=== PATIENT | female | born 1950 | race Caucasian/White ===

== ENCOUNTER 2017-04-13 05:31 | Inpatient (IN) | payer OTHER ==
--- NOTE | 2017-01-29 12:08 | PAT Medication Instructions ---
Service Date January 29, 2017. Current Home Medication List Aspirin (Aspirin Ec), 81 MG PO QAM Calcium/Vitamin D (Os-Denzel 500 Plus D), 1 TAB PO BID Cyanocobalamin (Vitamin B12), 1 TAB PO NOON Ibuprofen (Advil), 400 MG PO Q6 PRN for Pain Multivitamin (Multivitamin), 1 TAB PO QPM Medication Instructions For Your Scheduled Surgery Ibuprofen (Advil), 400 MG PO Q6 PRN for Pain (check surgeon instructions) - Hold the following medications the morning of surgery: Calcium/Vitamin D (Os-Denzel 500 Plus D), 1 TAB PO BID Cyanocobalamin (Vitamin B12), 1 TAB PO NOON - Take the following medications the morning of surgery with a sip of water: Aspirin (Aspirin Ec), 81 MG PO QAM - Take the following medications as scheduled the night before surgery: Multivitamin (Multivitamin), 1 TAB PO QPM Calcium/Vitamin D (Os-Denzel 500 Plus D), 1 TAB PO BID If you have any questions please call us at [phone] or [phone] ( [place]) or [phone]
[2017-01-29 12:51] LABS: INR 0.9 (0.9-1.1); PARTIAL THROMBOPLASTIN RATIO 1.1; PROTHROMBIN TIME (PATIENT) 10.1 SECONDS (9.0-12.0)
[2017-01-29 13:02] LABS: URINE APPEARANCE CLEAR (CLEAR); URINE BILIRUBIN NEG (NEG); URINE COLOR YELLOW; URINE NITRITE NEG (NEG); URINE PH 5.5 (4.5-7.5); UROBILINOGEN NEG (NEG); ZZUR CULT IF INDIC CLEAN CATCH NO
--- NOTE | 2017-01-29 13:02 | DIAGNOSTIC IMAGING REPORT ---
CHEST 2 VIEWS ROUTINE HISTORY: Preop. COMPARISON: None. FINDINGS: The lungs are clear. Cardiac silhouette is normal in size. No pleural effusions. No pneumothorax. IMPRESSION: No acute process. Electronically signed by: Nelson Briggs M.D. 01/29/2017 1:01 PM Dictated Date/Time: 01/29/2017 1:00 PM
[2017-01-29 13:12] LABS: MANUAL MICROSCOPIC REQUIRED? NO; REVIEW REQ? NO
--- NOTE | 2017-03-03 14:06 | HISTORY & PHYSICAL EXAMINATION ---
DATE OF ADMISSION: 03/16/2017 CHIEF COMPLAINT: Right knee pain. HISTORY OF PRESENT ILLNESS: Trini is a 66-year-old female with a multiple year history of right knee pain. She rates her pain a 9/10. She has pain with her daily activities. She has limited standing and walking tolerance. Pain is worse with weightbearing. The patient has had injections, NSAID and she ambulates with a cane without relief. She is now scheduled for right knee replacement. PAST MEDICAL HISTORY: ITP. She denies heart disease, diabetes or DVT. PAST SURGICAL HISTORY: Tonsillectomy, splenectomy and hernia repair. SOCIAL HISTORY: The patient drinks one drink per week. She denies tobacco use. She lives in a 2-story home. She lives alone but is planning to stay with her sister on the first floor postoperatively. She is retired. FAMILY HISTORY: Negative for DVT. MEDICATIONS: Calcium 600 mg b.i.d., vitamin B12 500 mg daily, aspirin 81 mg daily, Advil p.r.n., Centrum Silver 1 daily. ALLERGIES: PENICILLIN AND LATEX. REVIEW OF SYSTEMS: See HPI. Ten other systems reviewed, all negative. PHYSICAL EXAMINATION: VITAL SIGNS: Height 5 feet 1 inch, weight 160 pounds. BMI is 30. GENERAL: This is a well-developed, well-nourished female who is alert and oriented x3. Mood and affect are appropriate. HEAD, EYES, EARS, NOSE, AND THROAT: Normocephalic, atraumatic. Mucous membranes are moist and intact. NECK: Supple without lymphadenopathy. HEART: Regular rate and rhythm without murmurs, rubs or gallops. LUNGS: Clear to auscultation without wheezes or rhonchi. ABDOMEN: Soft and nontender. Bowel sounds are equal and active. EXTREMITIES: No ecchymosis, redness or warmth. She has varus deformity. Range of motion is from 0-115 degrees with +1 laxity. She is neurovascularly intact with +5/5 strength. X-RAY EXAMINATION: AP and lateral views show joint space narrowing and osteophyte formation. IMPRESSION: Degenerative joint disease, right knee. PLAN: The patient will be admitted for a right total knee arthroplasty. We will plan on aspirin for DVT prophylaxis. PCP is YOLA Coelho. She will have [facility] for home physical therapy.
--- NOTE | 2017-04-10 18:14 | History and Physical ---
History & Physical Date Apr 10, 2017. Chief Complaint RIGHT KNEE PAIN History of Present Illness The patient is a 66 year old female with complaints of right knee pain for several years now. She has tried nsaids, PT, and injections with no relief. Pt is ready for right knee replacement. Past Medical/Surgical History ITP, MANAGED BY SPLENECTOMY SPLENECTOMY Additional History Hepatic Disease: No Endocrine Disorder: No Kidney Disease: No Hypertension: No Heart Disease: No Bleeding Tendencies: Yes (HX OF ITP) Infectious Diseases: No Allergies Coded Allergies: Latex1 -Allergic Contact Dermititis (Verified Allergy, Unknown, PER ALLERGY TEST, 01/29/17) Oxycodone (Verified Allergy, Unknown, RASH, 01/29/17) PATIENT HAD A HERNIA SURGERY AND ONCE HOME DEVELOPED A SEVERE ITCHING RASH, SURGEON BELIEVES IT WAS FROM OXYCODONE POLLEN (Verified Allergy, Unknown, HAYFEVER, 01/29/17) Penicillins (Verified Allergy, Unknown, RASH, 01/29/17) Home Medications Scheduled Aspirin (Aspirin Ec), 81 MG PO QAM Calcium/Vitamin D (Os-Denzel 500 Plus D), 1 TAB PO BID Cyanocobalamin (Vitamin B12), 1 TAB PO NOON Multivitamin (Multivitamin), 1 TAB PO QPM Scheduled PRN Ibuprofen (Advil), 400 MG PO Q6 PRN for Pain Physical Examination Skin: warm/dry, no rash Eyes: normal inspection, EOMI, sclerae normal ENT: normal ENT inspection, pharynx normal Head: normocephalic, atraumatic Neck: supple, no adenopathy, trachea midline Respiratory/Chest: lungs clear, normal breath sounds, no respiratory distress Cardiovascular: regular rate, rhythm, no edema, no murmur Abdomen / GI: normal bowel sounds, non tender Back: normal inspection Extremities: + pertinent finding (PAIN WITH ROM WITH RIGHT KNEE. CREPITATION WITH MOTION WELL. ) Neurologic/Psych: no motor/sensory deficits, alert, normal reflexes, oriented x 3 Diagnosis DJD RIGHT KNEE Plan of Treatment ADMIT TO [facility]. PLAN IS FOR RIGHT TOTAL KNEE REPLACEMENT.
[~2017-04-13] VITALS: Ht 154.9 cm; Wt 72.8 kg
[2017-04-13] VITALS (9 sets, daily range): BP systolic 106–157; BP diastolic 68–89; PULSE 67–91; TEMP 36.2–36.7; O2SAT 95–99; Ht 154.9 cm; Wt 72.8 kg
[~2017-04-13 05:31] MED LIST: ASPI81TA28 PO; CALC500C70 PO; CYAN100020 PO; IBUP-1050 PO; LACTATED RINGER'S 1000ML 1,000 ML IV SCH; LACTATED RINGER'S 1000ML 500 ML IV ONE; MULT-506 PO
[2017-04-13] MEDS ORDERED: ROPIVACAINE 5MG/ML 30 ML 150 MG, BUPIVACAINE/EPINEPHR 0.5% MPF 30 ML, KETOROLAC TROMETH... INFIL SCH ×7 (06:00)
[2017-04-13] MEDS ORDERED: FAMOTIDINE 20 MG TAB PO SCH (06:00)
[2017-04-13] MEDS ORDERED: LACTATED RINGER'S 1000ML 1,000 ML IV SCH ×2 (06:00)
[2017-04-13] MEDS ORDERED: CEFAZOLIN 1000MG/55 ML D5W 55 ML IV SCH (06:00)
[2017-04-13] MEDS ORDERED: ACETAMINOPHEN 500 MG TAB PO SCH (06:00)
[2017-04-13] MEDS ORDERED: LACTATED RINGER'S 1000ML 500 ML IV ONE (06:00)
[2017-04-13] MEDS ORDERED: METOCLOPRAMIDE HCL 10 MG TAB PO SCH (06:00)
[2017-04-13] MEDS ORDERED: CeleBREX 200 MG CAP PO SCH (06:00)
[2017-04-13] MEDS ORDERED: DEXAMETHASONE 4 MG TAB PO SCH (06:00)
[2017-04-13] MEDS ORDERED: BUPIVACAINE 0.25% 30 ML VIAL ONE (07:40)
[2017-04-13] MEDS ORDERED: BUPIVACAINE 0.5 % 5 MG/1 ML PF 10ML VIAL ONE (07:40)
[2017-04-13] MEDS ORDERED: FENTANYL CITRATE INJ 50 MCG/1 ML 2 ML VIAL ONE (10:08)
[2017-04-13] MEDS ORDERED: MIDAZOLAM HCL 1 MG/ML 2ML VIAL ONE (10:08)
[2017-04-13] MEDS ORDERED: CHERRY PACK PO (10:33)
--- NOTE | 2017-04-13 10:43 | History & Physical Bridge Note ---
H&P Re-Evaluation Bridge Note: I have examined the patient, reviewed the History & Physical and in the interval since the performance of the History & Physical I have noted the following changes of clinical significance: No changes noted
[2017-04-13] MEDS ORDERED: ORTHO JOINT ANESTHETIC ONE (11:14)
[2017-04-13] MEDS ORDERED: BACITRACIN 50000 UNIT VIAL ONE (11:14)
[2017-04-13] MEDS ORDERED: POVIDONE-IODINE OP SOLN 30 ML BTL ONE (11:14)
[2017-04-13] MEDS ORDERED: PHENYLEPHRINE 100MCG/ML 5ML SYR IV PRN (11:45)
[2017-04-13] MEDS ORDERED: ATROPINE SULFATE 0.1 MG/ML 5ML SYR IV PRN (11:45)
[2017-04-13] MEDS ORDERED: ONDANSETRON INJ 2 MG/ML 2 ML VIAL IV PRN ×2 (11:45→13:00)
[2017-04-13] MEDS ORDERED: KETOROLAC TROMETHAMINE 15 MG/ML VIAL IV. PRN (11:45)
[2017-04-13] MEDS ORDERED: HYDROmorphone INJ 2 MG/ML SYR/VIAL IV PRN (11:45)
[2017-04-13] MEDS ORDERED: EpHEDrine SULFATE INJ 50 MG/ML AMP IV PRN (11:45)
[2017-04-13] MEDS ORDERED: PROPOFOL IV EMULSION 10 MG/ML 20 ML VIAL IV ONE ×2 (11:50→12:58)
[2017-04-13] MEDS ORDERED: CEFAZOLIN SOD 1 GM VIAL ONE (12:05)
[2017-04-13] MEDS ORDERED: LIDOCAINE HCL 2% 2 ML VIAL (20MG/ML) ONE ×2 (12:05→12:58)
--- NOTE | 2017-04-13 12:57 | [facility] Post Operative Brief Note ---
Immediate Operative Summary Operative Date Apr 13, 2017. Pre-Operative Diagnosis Right Knee Degenerative Joint Disease Post-Operative Diagnosis Right Knee Degenerative Joint Disease Procedure(s) Performed Right Total Knee Arthroplasty, Cemented Surgeon Dr. Sierra Medical Records Manager Surgeon(s) Karen Reyna PA-C Estimated Blood Loss 20 mL Findings as above Specimens A: Right Knee Bone and Tissue Complication(s) None Disposition Recovery Room / PACU
[2017-04-13] MEDS ORDERED: ALUMINUM/MAGNESIUM/SIMETH (MAALOX MAX) 30 ML UDC PO PRN (13:00)
[2017-04-13] MEDS ORDERED: NO NSAIDS SCH (13:00)
[2017-04-13] MEDS ORDERED: BISACODYL 10 MG SUPP PR PRN (13:00)
[2017-04-13] MEDS ORDERED: ZOLPIDEM TARTRATE 5 MG TAB PO PRN (13:00)
[2017-04-13] MEDS ORDERED: OXYCODONE HCL IR 5 MG TAB (IMMEDIATE RELEASE) PO PRN (13:00)
[2017-04-13] MEDS ORDERED: MAGNESIUM HYDROXIDE SUSP 30 ML UDC PO PRN (13:00)
--- NOTE | 2017-04-13 14:19 | OPERATIVE REPORT ---
DATE OF OPERATION: 04/13/2017 PREOPERATIVE DIAGNOSIS: Degenerative joint disease of the right knee. POSTOPERATIVE DIAGNOSIS: Same. PROCEDURE: Right total knee arthroplasty with use of the patient matched implant. SURGEON: Eugenio Yang DO PHARMACOLOGY TEACHER: MARLO Smith certified. ANESTHESIA: Spinal. COMPLICATIONS: Zero. DISPOSITION: The patient tolerated the procedure well and transferred to the recovery room. IMPLANTS USED: A [employer] II knee size 4 cemented femoral component, a size 3 tibial component, size 13 PS insert and size 32 all polyethylene patella. INDICATIONS: Ms. Wilder is a pleasant female who has unfortunately failed all forms of conservative measures. Therefore, she has decided to undergo elective surgical intervention. All risks and benefits of the surgery were discussed with the patient and the family in entirety. PROCEDURE: The patient was brought to the operating room and properly identified by myself, anesthesia, and staff. She was given a spinal anesthetic and placed on the operating table in the supine position. Tourniquets were applied to the right upper thigh. The leg was then prepped and draped in usual sterile fashion. We made a standard midline approach over the patella and dissected down through the subcutaneous tissue to identify the capsule and performed a medial capsulotomy with the patella everted and the knee flexed. The patient-matched implant was then put onto the femur. The femur measured to be a size 4. This was then put into place. We made the appropriate cuts and then placed a retractor behind the proximal tibia to retract anteriorly. We then placed the patient-matched knee implant on the tibia. It measured to be a size 3. A size 13 guide was then put in place. We used the tibial punch then put the trial components into place. We had very good range of motion, excellent stability, and excellent patella tracking. We removed the trial components and irrigated the wound. We impacted the components in place using antibiotic cement. All excess cement was removed. We then irrigated the wound once more. We closed the capsule with 0 PDS suture, deep dermis with 2-0 Vicryl, and finally the skin with angela. A sterile dressing was applied. The patient was taken to the recovery room in stable condition. Due to the complex nature of the procedure, the entire surgery was performed with the operational assistance of the (TIGIST). The electrical assistant was under direct supervision, was involved in the actual performance of all aspects of the surgical procedure including hemostasis, tissue retraction and incision, instrument management, patient positioning, and wound closure. I attest to the content of the Intraoperative Record and any orders documented therein. Any exceptions are noted below. RODOLFO
[2017-04-13] MEDS: TRANEXAMIC ACID INJ 1,000 MG in SODIUM CHLORIDE 0.9% 100ML 100 ML IV SCH ×2 (15:11→15:12)
[2017-04-13] MEDS: SODIUM CHLORIDE 0.9% 1000ML 1,000 ML IV SCH ×2 (15:14→22:14)
--- NOTE | 2017-04-13 15:39 | Anesthesiology Progress Note ---
Anesthesia Post Op Note Date & Time Apr 13, 2017 at 15:39 Vital Signs Pain Intensity: 0.0 Vital Signs Past 12 Hours Date Time Temp Pulse Resp B/P (MAP) Pulse Ox O2 Delivery O2 Flow Rate FiO2 04/13/17 15:24 36.5 75 16 106/68 (81) 99 Nasal Cannula 2.0 04/13/17 14:40 36.7 71 19 126/81 (96) 98 Nasal Cannula 2.0 04/13/17 14:15 36.2 78 16 123/75 (91) 98 Nasal Cannula 2.0 04/13/17 14:15 Nasal Cannula 2.0 04/13/17 14:15 Nasal Cannula 2.0 04/13/17 14:05 75 16 113/61 99 Nasal Cannula 2 04/13/17 13:55 36.4 74 16 112/63 99 Nasal Cannula 2 04/13/17 13:45 72 16 104/57 99 Oxymask 3 04/13/17 13:35 73 16 97/57 98 Oxymask 5 04/13/17 13:25 76 16 88/50 95 Oxymask 10 04/13/17 13:19 36.3 75 16 90/44 95 Oxymask 10 04/13/17 09:50 36.6 88 16 144/89 04/13/17 09:50 97 Room Air Notes Mental Status: alert / awake / arousable, participated in evaluation Pt Amnestic to Procedure: Yes Nausea / Vomiting: adequately controlled Pain: adequately controlled Airway Patency, RR, SpO2: stable & adequate BP & HR: stable & adequate Hydration State: stable & adequate Anesthetic Complications: no major complications apparent
[2017-04-13] MEDS ORDERED: NURSING VERBAL MED ORDER ONE ×2 (19:30)
[2017-04-13] MEDS ORDERED: KETOROLAC TROMETHAMINE 15 MG/ML VIAL IV. ONE (19:45)
[2017-04-13] MEDS: HYDROCODONE/ACETAMOPHEN 5/325MG TAB PO PRN ×2 (19:45→20:51)
[2017-04-13] MEDS: ASPIRIN 81 MG ECTAB PO SCH (20:52)
[2017-04-13] MEDS: CEFAZOLIN IV 1,000 MG in DEXTROSE 5% 50ML 50 ML IV SCH (20:52)
[2017-04-13] MEDS: DOCUSATE SODIUM 100 MG CAP PO SCH (20:52)
[2017-04-13] MEDS: ACETAMINOPHEN 500 MG TAB PO SCH (22:00)
[2017-04-14] VITALS (7 sets, daily range): BP systolic 117–143; BP diastolic 71–85; PULSE 63–85; TEMP 36.4–36.7; O2SAT 96–99
[2017-04-14] MEDS: CEFAZOLIN IV 1,000 MG in DEXTROSE 5% 50ML 50 ML IV SCH (03:25)
[2017-04-14] MEDS: HYDROCODONE/ACETAMOPHEN 5/325MG TAB PO PRN (03:29)
[2017-04-14] MEDS: ACETAMINOPHEN 500 MG TAB PO SCH ×3 (03:30→21:50)
[2017-04-14 06:01] LABS: HEMATOCRIT 33.5 % (37-47); MEAN CELL VOLUME 89.1 fL (80-100); MEAN CORPUSCULAR HEMOGLOBIN 30.1 pg (25-34); MEAN CORPUSCULAR HGB CONC 33.7 g/dl (32-36); MEAN PLATELET VOLUME 10.6 fL (7.4-10.4); PLATELET COUNT 282 K/uL (130-400); RED BLOOD COUNT 3.76 M/uL (4.2-5.4); WHITE BLOOD COUNT 19.24 K/uL (4.8-10.8)
[2017-04-14] MEDS ORDERED: DEXAMETHASONE INJ 10 MG in SYRINGE 0 ML IV SCH (07:30)
[2017-04-14] MEDS: PANTOprazole SOD 40 MG TAB PO SCH (08:40)
[2017-04-14] MEDS: ASPIRIN 81 MG ECTAB PO SCH ×2 (08:40→21:00)
[2017-04-14] MEDS: SODIUM CHLORIDE 0.9% 1000ML 1,000 ML IV SCH (08:41)
[2017-04-14] MEDS: DOCUSATE SODIUM 100 MG CAP PO SCH ×2 (08:41→21:00)
--- NOTE | 2017-04-14 11:02 | Orthopedic Progress Note ---
Orthopedic Progress Note Date of Service Apr 14, 2017. Subjective Post OP Day: 1 Reports: feeling well, complaints (RASH NOTED IN FLEXOR SURFACES (ARMS, GROIN, BREASTS)), Denies: chest pain, SOB, nausea / vomiting, light headedness, calf pain Objective calves soft nontender, N/V intact, dressing C/D/I, A&O x3, toes mobile Date Time Temp Pulse Resp B/P (MAP) Pulse Ox O2 Delivery O2 Flow Rate FiO2 04/14/17 10:11 96 Room Air 04/14/17 08:19 Room Air 04/14/17 07:51 36.4 72 10 122/74 (90) 96 Room Air 04/14/17 03:24 36.4 64 16 117/71 (86) 97 Room Air 04/13/17 23:46 36.6 67 16 113/69 (84) 97 Room Air 04/13/17 23:05 Room Air 04/13/17 18:50 36.6 82 16 112/73 (86) 95 Room Air 04/13/17 17:19 36.6 73 16 117/71 (86) 97 Nasal Cannula 2.0 04/13/17 16:15 36.6 77 16 111/68 (82) 98 Nasal Cannula 2.0 04/13/17 15:24 36.5 75 16 106/68 (81) 99 Nasal Cannula 2.0 04/13/17 15:20 Nasal Cannula 2.0 04/13/17 14:40 36.7 71 19 126/81 (96) 98 Nasal Cannula 2.0 04/13/17 14:15 36.2 78 16 123/75 (91) 98 Nasal Cannula 2.0 04/13/17 14:15 Nasal Cannula 2.0 04/13/17 14:15 Nasal Cannula 2.0 04/13/17 14:05 75 16 113/61 99 Nasal Cannula 2 04/13/17 13:55 36.4 74 16 112/63 99 Nasal Cannula 2 04/13/17 13:45 72 16 104/57 99 Oxymask 3 04/13/17 13:35 73 16 97/57 98 Oxymask 5 04/13/17 13:25 76 16 88/50 95 Oxymask 10 04/13/17 13:19 36.3 75 16 90/44 95 Oxymask 10 Laboratory Results 24 Hours: Test 04/14/17 05:25 Hematocrit 33.5 % Hemoglobin 11.3 g/dL Assessment & Plan Assessment: POD#1 SP RIGHT TKA Inhouse Planning Pain Management: Celebrex, [place] DVT Prophylaxis: ASA Discharge Planning Discharge Planning: home with oppt (POSSIBLE DC TODAY. RECHECK RASH LATER TODAY )
[2017-04-14] MEDS: BETAMETHASONE VAL 0.1% CR 15 GM EXT PRN (23:04)
--- NOTE | 2017-04-14 23:53 | Medical Consult ---
Consultation Date of Consultation: Apr 14, 2017. Attending Physician: Eugenio Sierra DO Reason for Consultation: Rash History of Present Illness 66 year old with diffuse blanching erythematous raised confluent rash mostly in sweat prone areas. She is unsure whether it started after having opiates or antibiotics. No resolution of symptoms despite antihistamines given as inpatient. Very itchy. No bruising or spontaneous bleeding Previous had similar rash after oxycodone use. Hx of chronic ITP but platelets currently normal. Past Medical/Surgical History Chronic ITP Hx opiate (oxycodone) induced rash Splenectomy Social History Smoking Status: Never Smoker Allergies Coded Allergies: Latex1 -Allergic Contact Dermititis (Verified Allergy, Unknown, PER ALLERGY TEST, 01/29/17) Oxycodone (Verified Allergy, Unknown, RASH, 01/29/17) PATIENT HAD A HERNIA SURGERY AND ONCE HOME DEVELOPED A SEVERE ITCHING RASH, SURGEON BELIEVES IT WAS FROM OXYCODONE POLLEN (Verified Allergy, Unknown, HAYFEVER, 01/29/17) Penicillins (Verified Allergy, Unknown, RASH, 01/29/17) Current Inpatient Medications Current Inpatient Medications Medications (Trade) Dose Ordered Sig/Stephanie Route Start Time Stop Time Status Last Admin Dose Admin Miscellaneous Medication (No Nsaids) 1 ea UD N/A 04/13/17 13:00 05/13/17 12:59 Oxycodone HCl (Roxicodone Immediate Rel Tab) 1 TABLET FOR PAIN RATING... Q4H PRN PO 04/13/17 13:00 04/27/17 12:59 Acetaminophen (Tylenol Tab) 1,000 mg Q8 PO 04/13/17 22:00 05/13/17 21:59 04/14/17 21:50 1,000 MG Magnesium Hydroxide (Milk Of Magnesia Susp) 30 ml Q6H PRN PO 04/13/17 13:00 05/13/17 12:59 Bisacodyl (Dulcolax Supp) 10 mg DAILY PRN IA 04/13/17 13:00 05/13/17 12:59 Docusate Sodium (coLACE CAP) 100 mg BID PO 04/13/17 21:00 05/13/17 20:59 04/14/17 21:00 100 MG Al Hydrox/Mg Hydrox/Simethicone (Maalox Max Susp) 15 ml Q4H PRN PO 04/13/17 13:00 05/13/17 12:59 Zolpidem Tartrate (Ambien Tab) 5 mg HSZ PRN PO 04/13/17 13:00 05/13/17 12:59 Ondansetron HCl (Zofran Inj) 4 mg Q6H PRN IV 04/13/17 13:00 05/13/17 12:59 Pantoprazole Sodium (Protonix Tab) 40 mg QAM PO 04/14/17 09:00 05/14/17 08:59 04/14/17 08:40 40 MG Aspirin (Ecotrin Tab) 81 mg BID PO 04/13/17 21:00 05/13/17 20:59 04/14/17 21:00 81 MG Betamethasone Valerate (Valisone 0.1% Crm) 1 appln QID PRN EXT 04/14/17 22:45 05/14/17 22:44 04/14/17 23:04 1 APPLN Review of Systems Constitutional: No fever, No chills Abdomen: No pain, No nausea, No vomiting, No diarrhea, No constipation Genitourinary - Female: No dysuria, No urinary frequency, No urinary urgency Integumentary: + problem reported (see HPI) Physical Exam Date Time Temp Pulse Resp B/P (MAP) Pulse Ox O2 Delivery O2 Flow Rate FiO2 04/14/17 23:17 36.7 63 18 117/71 (86) 97 Room Air 04/14/17 16:35 Room Air 04/14/17 16:01 36.7 82 19 125/72 (89) 96 Room Air 04/14/17 11:35 36.6 72 20 118/72 (87) 96 Room Air 04/14/17 10:11 96 Room Air 04/14/17 10:06 85 99 04/14/17 08:19 Room Air 04/14/17 07:51 36.4 72 10 122/74 (90) 96 Room Air 04/14/17 03:24 36.4 64 16 117/71 (86) 97 Room Air General Appearance: WD/WN, no apparent distress Respiratory/Chest: chest non-tender, lungs clear, normal breath sounds, no respiratory distress, no accessory muscle use Cardiovascular: regular rate, rhythm, normal peripheral pulses Abdomen/GI: normal bowel sounds, non tender, soft Extremities/Musculoskelatal: no calf tenderness, normal capillary refill Skin: + rash (diffuse blanching erythematous raised confluent rash mostly in sweat prone areas) Laboratory Results Last 24 Hours Test 04/14/17 05:25 White Blood Count 19.24 K/uL Red Blood Count 3.76 M/uL Hemoglobin 11.3 g/dL Hematocrit 33.5 % Mean Corpuscular Volume 89.1 fL Mean Corpuscular Hemoglobin 30.1 pg Mean Corpuscular Hemoglobin Concent 33.7 g/dl RDW Standard Deviation 47.0 fL RDW Coefficient of Variation 14.4 % Platelet Count 282 K/uL Mean Platelet Volume 10.6 fL Hepatitis C Antibody Screen NEG Assessment & Plan 66 year old with diffuse blanching erythematous raised confluent rash mostly in sweat prone areas. Given Hx of acute sudden eruption and patient reports similar in appearance to previous rash after oxycodone use it is most likely a non IgE mediated opiate reaction. Other potential differentials include Tinea ( not classic appearance or rapid onset Hx), cefazolin induced allergy (does not appear as hives). No petechia or purpura to be concerned about ITP. Asplenic therefore have to be vigilant for cellulitis given she is less protected against encapsulated organisms. Plan Stop Benadryl - this has not helped which supports the diagnosis of non IgE mediated Stop hydrocodone. If she needs something more than tylenol for pain could try a different class of opiates ie. synthetic phenylpiperidine eg. fentanyl Initially we will try to avoid systemic steroids if possible and start beclomethasone 0.1% cream to help with itching. If rash does not improve with steroid cream can always increase potency or will discuss with patient option for systemic steroids. We will continue to see to assess for worsening/improving symptoms. 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 Plt currently 272 Attending Addendum: I have physically seen and examined this patient, have supervised the medical residents activities, and agree with the H&P as noted above with the following exceptions as noted. The patient denies chest pain, palpitations, shortness of breath, cough, lower extremity swelling, sore throat, fevers, chills, sweats, fatigue, nausea, vomiting, diarrhea or constipation, blood in urine or stool, dysuria, urinary frequency or urgency, lightheadedness, dizziness, headache, memory loss, imbalance, focal or generalized weakness, numbness or tingling in arms or legs, generalized arthralgias or myalgias, back or neck pain, night sweats. The review of systems is otherwise negative other than for that already noted above, and at least 10 systems have been reviewed. The patient is awake, well-developed and adequately nourished, alert and oriented 3, normocephalic and atraumatic, lying in bed and in no acute distress. HEENT--PERRL, EOMI, mucous membranes and oropharynx dry. Neck--supple, no JVD or bruits, thyroid normal, trachea midline, no adenopathy. Heart--normal S1 and S2, no extra beats, no murmurs, rubs or gallops. Lungs--clear bilaterally with good air movement, no respiratory distress, no accessory muscle use. Abdomen--normal bowel sounds and soft, nontender and nondistended, no hernias or masses, no organomegaly. Extremities--no cyanosis, clubbing or edema. There are good distal pulses b/l. Dermatologic--generalized, confluent, nontender rash most prominent on the breast tissue and skin folds. Neurologic--cranial nerves II through XII grossly intact, motor and sensory examination normal. Rheumatologic--normal range of motion, nontender, muscles and joints. Psychiatric--normal affect. Assessment and Plan: 1. Rash--unclear etiology, most likely related to oxycodone as noted above. No benefit with Benadryl so could D/C. Place on topical steroids as noted, if symptoms are persistent would place on low-dose prednisone.
[2017-04-15] MEDS: BETAMETHASONE VAL 0.1% CR 15 GM EXT PRN (04:15)
[2017-04-15] MEDS: ACETAMINOPHEN 500 MG TAB PO SCH ×2 (05:46→13:56)
--- NOTE | 2017-04-15 07:35 | Orthopedic Progress Note ---
Orthopedic Progress Note Date of Service Apr 15, 2017. Subjective Post OP Day: 2 Reports: feeling well, Denies: chest pain, SOB, nausea / vomiting, light headedness, calf pain Additional Notes: RASH IS NOT IMPROVING. SEEMS MORE RED TODAY. COMPLAINING OF ITCHING. Objective calves soft nontender, N/V intact, incision C/D/I, A&O x3, toes mobile Urticarial rash noted in most flexor surfaces and skin folds. Date Time Temp Pulse Resp B/P (MAP) Pulse Ox O2 Delivery O2 Flow Rate FiO2 04/14/17 23:30 Room Air 04/14/17 23:17 36.7 63 18 117/71 (86) 97 Room Air 04/14/17 16:35 Room Air 04/14/17 16:01 36.7 82 19 125/72 (89) 96 Room Air 04/14/17 11:35 36.6 72 20 118/72 (87) 96 Room Air 04/14/17 10:11 96 Room Air 04/14/17 10:06 85 99 04/14/17 08:19 Room Air 04/14/17 07:51 36.4 72 10 122/74 (90) 96 Room Air Assessment & Plan Assessment: POD#2 SP RIGHT TKA URTICARIA Plan: MEDICAL SERVICE CONSULTED LAST NIGHT FOR RASH THAT WAS NOT RESPONDING TO BENEDRYL AND [employer]ICAL [employer].- IV SOLUMEDROL ORDERED BUT SHE HASN'T HAD IT YET, DUE AT 0745. DISCUSSED WITH DR. DE PAZ. HE IS FINE WITH HER GOING HOME ON A MEDROL DOSE PACK. HOPEFUL DC HOME TODAY IF FEELING BETTER LATER. Inhouse Planning Pain Management: Celebrex, [place] DVT Prophylaxis: ASA Discharge Planning Discharge Planning: home with oppt (POSSIBLE DC TODAY. RECHECK RASH LATER TODAY )
--- NOTE | 2017-04-15 07:37 | Discharge Instructions ---
Discharge Instructions Date of Service Apr 15, 2017. Admission Reason for Admission: Right Knee Degenerative Arthritis Discharge Discharge Diagnosis / Problem: SP RIGHT TKA Discharge Goals Goal(s): Decrease discomfort, Improve function, Increase independence Activity Recommendations Activity Limitations: per Instructions/Follow-up section . Instructions / Follow-Up Instructions / Follow-Up ACTIVITY RECOMMENDATIONS: SELF CARE INSTRUCTIONS AFTER TOTAL KNEE REPLACEMENT A. You may need to continue a physical therapy program after discharge from the hospital. There are several options available to you. Your doctor will assist you in selecting the best one for you. 1. An out-patient facility 2 to 3 times a week for therapy or home therapy. 2. Continue working on all exercises taught to you in the hospital. Your goals should be to increase bending of your knee to 90 degrees and beyond and to fully straighten your knee. B. You may progress at your own pace from walking with a walker or crutches to a cane; then to no assistive devices. C. Make walking a part of your daily routine. Be up as much as comfortable with rest periods throughout the day. Rest with leg elevation is very important. Use the ice wrap frequently for the first 3-4 weeks. D. There are no restrictions on activities. You may ride in a car, shop, participate in marbleizing machine tender and all social activities. E. Wear the long elastic stockings (IRENE hose) 20 hours a day for 2 weeks after surgery. They can be removed several times a day for laundering and for a bath. F. You may shower, no tub baths until cleared by your doctor. SPECIAL CARE INSTRUCTIONS: VERY IMPORTANT TO READ AND REVIEW A. There are a few signs you need to watch for after you are home. Call [facility] if you notice any of the followin. Increased severe knee pain. Some pain is expected especially when you exercise. 2. Increased swelling in your leg or knee; pain or swelling of the calf muscle in either lower leg. 3. Any fluid drainage from the incision. 4. Shortness of breath or chest pain. B. Please call [facility] at if you have any concerns or questions about your operation or recovery. The doctor or his nurse will return your call promptly. C. You must take antibiotics before dental work, bladder, bowel or other surgery. Your doctor will provide you with a permanent care to carry describing this precaution. IMPORTANT: * REMEMBER TO TAKE ASPIRIN, 81 MG, TWICE DAILY FOR 4 WEEKS UNLESS OTHERWISE DIRECTED. THIS IS YOUR BLOOD THINNER. * HIGH RISK PATIENTS MAY BE PRESCRIBED A STRONGER BLOOD THINNER. THIS WILL BE PROVIDED AT DISCHARGE. * CALL IF INCREASED PAIN, REDNESS, DRAINAGE OR FEVER GREATER THAT 101. * WEAR IRENE HOSE 20 HOURS PER DAY FOR 2 WEEKS. DERMABOND Prineo- This is a mesh tape dressing that is covered with glue. It should remain in place until the incision is properly healed, usually 10-14 days. This dressing is designed to naturally slough off. You may trim the excess mesh tape as it peels off. Incision may be briefly wet in a shower. Dry immediately by blotting with a clean, dry towel. Do not bath or swim until instructed by your doctor. Do not scratch, rub, or pick at the dressing. Do not apply any topical ointments or lotions until dressing is completely removed and/or instructed by your doctor. There may be a small piece of suture material at one end of your incision. Do not pull or trim this. If it is bothersome or catching on clothing, you may cover it with a band-aid. FOLLOW UP VISIT: If appointment is not already scheduled: Please call [facility] to make a follow-up appointment for 2 weeks after your surgery at . Current Hospital Diet Patient's current hospital diet: Regular Diet Discharge Diet Recommended Diet: Regular Diet Procedures Procedures Performed: Right Total Knee Arthroplasty, Cemented Pending Studies Studies pending at discharge: no Medical Emergencies . Who to Call and When: Medical Emergencies: If at any time you feel your situation is an emergency, please call 911 immediately. . Non-Emergent Contact Non-Emergency issues call your: Surgeon . "Provider Documentation" section prepared by Karen Reyna. . VTE Core Measure Inpt VTE Proph given/why not?: Other Anticoagulation
[2017-04-15] MEDS ORDERED: METH4PAK PO (07:39)
[2017-04-15] MEDS ORDERED: ACET-24 PO (07:39)
[2017-04-15] MEDS ORDERED: ULT50X PO (07:39)
[2017-04-15] MEDS ORDERED: ASPI81TA28 PO (07:39)
[2017-04-15 07:42] VITALS: BP 132/80; PULSE 68; TEMP 36.6; O2SAT 96
[2017-04-15 07:45] VITALS: O2SAT 96
[2017-04-15] MEDS ORDERED: METHYLPREDNISOLONE IV 60 MG in SYRINGE 0 ML IV SCH (07:45)
[2017-04-15] MEDS: DOCUSATE SODIUM 100 MG CAP PO SCH (08:50)
[2017-04-15] MEDS: ASPIRIN 81 MG ECTAB PO SCH (08:50)
[2017-04-15] MEDS: PANTOprazole SOD 40 MG TAB PO SCH (08:50)
[2017-04-15 09:45] VITALS: BP 130/78; PULSE 78; O2SAT 97
[2017-04-15 17:25] VITALS: BP 123/78; PULSE 71; TEMP 36.9; O2SAT 96
== END 2017-04-15 18:15 | disposition home or self-care (01) | DRG 470 ==
LOC: C.ACU 05:31 → C.3E 09:50 → ENRESERV 13:40
PROVIDERS: ADMIT Orthopaedic Surgery; ATTEND Orthopaedic Surgery
PROC: 0SRC0J9 Replacement of Right Knee Joint with Synthetic Substitute, Cemented, Open Approach (ICD-10-PCS; principal; 2017-04-13 12:30)
DX: M17.11 Unilateral primary osteoarthritis, right knee (principal); D69.3 Immune thrombocytopenic purpura; M21.161 Varus deformity, not elsewhere classified, right knee; L50.0 Allergic urticaria; L27.0 Generalized skin eruption due to drugs and medicaments taken internally; T40.2X5A Adverse effect of other opioids, initial encounter; Y92.230 Patient room in hospital as the place of occurrence of the external cause; E66.9 Obesity, unspecified; Z68.30 Body mass index [BMI] 30.0-30.9, adult; Z90.81 Acquired absence of spleen; Z79.82 Long term (current) use of aspirin